=== PATIENT | male | born 1975 | race Two or more races ===

== ENCOUNTER → 2023-09-15 | Outpatient (CLI) | payer MEDICAID | END | disposition home or self-care (01) | LOC: MRI 13:50 | PROVIDERS: ATTEND Student in an Organized Health Care Education/Training Program | DX: M25.462 Effusion, left knee (principal) | CPT/HCPCS: 73721 ==

== ENCOUNTER 2023-11-13 16:07 | Outpatient (CLI) | payer MEDICAID | END 2023-11-13 23:59 | disposition home or self-care (01) | LOC: RAD 16:07 | PROVIDERS: ATTEND Family Medicine | DX: M79.645 Pain in left finger(s) (principal) | CPT/HCPCS: 73140 ==